=== PATIENT | female | born 1980 | race Caucasian/White ===

== ENCOUNTER 2017-11-12 09:56 | Emergency (ER) | payer MEDICARE, MEDICAID ==
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
[2017-11-12 13:11] VITALS: BP 129/89
== END 2017-11-12 13:10 | disposition home or self-care (01) ==
LOC: ED 09:56
DX: R53.1 Weakness (principal); G35 Multiple sclerosis; F17.210 Nicotine dependence, cigarettes, uncomplicated; F25.9 Schizoaffective disorder, unspecified; Z99.3 Dependence on wheelchair; Z88.0 Allergy status to penicillin
CPT/HCPCS: 99282

== ENCOUNTER 2018-02-12 16:49 | Inpatient (IN) | payer MEDICARE, MEDICAID ==
[2018-02-12] MEDS ORDERED: Nicotine Inhaler* 10 MG AMP INH PRN (17:25)
[2018-02-12] MEDS ORDERED: Mouth Piece, Nicotine* 1 EACH CARTRIDGE INH ONE (18:00)
[2018-02-12 18:15] LABS: Hematocrit 48 % (35-47); Hemoglobin 15.9 g/dl (12.0-16.0); Mean Corpuscular HGB Conc 34 g/dl (31-36); Mean Corpuscular Hemoglobin 30 pg (27-31); Mean Corpuscular Volume 91 fL (80-97); Mean Platelet Volume 10.1 fL (7.4-10.4); Platelet Count 233 10^3/ul (150-450); Red Blood Count 5.25 10^6/ul (4.00-5.40); Red Cell Distribution Width 14 % (10.5-15); White Blood Count 6.9 10^3/ul (3.5-10.8)
[2018-02-12 18:25] LABS: EGFR Non-African American 94.2 (>60)
[2018-02-12 18:59] LABS: ABS Basophils 0.1 10^3/ul (0-0.2); ABS Eosinophils 0.1 10^3/ul (0-0.6); ABS Lymphocytes 3.7 10^3/ul (1.0-4.8); ABS Monocytes 0.4 10^3/ul (0-0.8); ABS Neutrophils 2.6 10^3/ul (1.5-7.7); ABS Nucleated RBC 0 10^3/ul; Eosinophil % 1.7 % (0-6); Lymphocyte % 53.9 % (25-47); Nucleated Red Blood Cells % 0.2
--- NOTE | 2018-02-12 20:57 | ED ---
Psychiatric Complaint - HPI Summary HPI Summary: Patient is a 37 y/o F brought in by ambulance with SI and plan to cut her wrists. She reports that her Abilify is not working and that she is currently manic. She notes she experiences SI when manic. Patient also reports previous attempts of suicide. Patient states that the has not slept for the past three days, no food intake in the past four days. PMHx of MS, patient is non- ambulatory. This has been the case for three years. No Hx of cardiac problems. On triage,associated severity is rated 8/10, nothing is noted to aggravate/ alleviate Sx. Home medications and allergies are reviewed. - History Of Current Complaint Chief Complaint: EDMentalHealth Time Seen by Provider: 02/12/18 17:24 Hx Obtained From: Patient Hx Last Menstrual Period: ON DEPOPROVERA Onset/Duration: Still Present Timing: Constant Severity Currently: Severe - 8/10 on triage Character: Manic Aggravating Factor(s): Nothing Alleviating Factor(s): Nothing Has Suicidal: Reports: Thoughts, With A Plan, Has Prior Attempt(s) - Allergies/Home Medications Allergies/Adverse Reactions: Allergies Allergy/AdvReac Type Severity Reaction Status Date / Time Penicillins Allergy Hives Verified 11/12/17 11:44 PMH/Surg Hx/FS Hx/Imm Hx Endocrine/Hematology History: Denies: Hx Anticoagulant Therapy, Hx Blood Disorders, Hx Blood Transfusions, Hx Bone Marrow Disease, Hx Diabetes, Hx Systemic Lupus Erythematosus, Hx Sickle Cell Disease, Hx Thyroid Disease, Hx Anemia, Hx Unexplained Bleeding, Other Endocrine/Hematological Disorders Cardiovascular History: Denies: Hx Aneurysm, Hx Angina, Hx Angioplasty, Hx Auto Implanted Cardiovert Defib, Hx Cardiac Arrest, Hx Cardiomegaly, Hx Congenital Heart Disease, Hx Congestive Heart Failure, Hx Coronary Artery Disease, Hx Deep Vein Thrombosis, Hx Hypercholesterolemia, Hx Hypotension, Hx Hypertension, Hx Pacemaker/ICD, Hx Peripheral Vascular Disease, Hx Rheumatic Fever, Hx Syncope, Hx Valvular Heart Disease, Other Cardiovascular Problems/Disorders History: Denies: Hx Dialysis, Hx Renal Disease Musculoskeletal History: Reports: Other Musculoskeletal History - rt knee miniscus repair right leg pain. Sensory History: Reports: Hx Contacts or Glasses - for reading Denies: Hx Hearing Aid Opthamlomology History: Reports: Hx Contacts or Glasses - for reading Neurological History: Denies: Other Neuro Impairments/Disorders - DENIES Psychiatric History: Reports: Hx Anxiety, Hx Depression, Hx Panic Disorder, Hx Post Traumatic Stress Disorder, Hx Inpatient Treatment, Hx Community Mental Health Tx - [facility], Hx Schizophrenia, Hx Suicide Attempt, Hx Substance Abuse Denies: Hx Attention Deficit Hyperactivity Disorder, Hx Eating Disorder, Hx Bipolar Disorder, Hx of Violent Episodes Against Others, Other Psychiatric Issues/Disorders - Surgical History Surgery Procedure, Year, and Place: 2004 rt knee miniscus repair Hx Anesthesia Reactions: No Infectious Disease History: No Infectious Disease History: Reports: Hx Shingles - states had disease Denies: Hx Clostridium Difficile, Hx Human Immunodeficiency Virus (HIV) - test negative, Hx Tuberculosis, Traveled Outside the US in Last 30 Days Comment Only: Hx Hepatitis - pt unsure - Family History Known Family History: Negative: Cardiac Disease, Diabetes - Social History Alcohol Use: None Substance Use Type: Reports: Marijuana Substance Use Comment - Amount & Last Used: cocaine, heroin, marijuana hx. Smoking Status (MU): Heavy Every Day Tobacco Smoker Type: Cigarettes Amount Used/How Often: 1-2 ppd Length of Time of Smoking/Using Tobacco: 10+ YRS Have You Smoked in the Last Year: Yes Review of Systems Negative: Fever - on vitals, temp is 98.4 F Positive: Other - manic, SI with plan, prior attempts All Other Systems Reviewed And Are Negative: Yes Physical Exam - Summary Physical Exam Summary: Appearance: Well-appearing, Well-nourished, lying in bed comfortably Skin: Warm, dry, no obvious rash Eyes: sclera anicteric, no conjunctival pallor ENT: mucous membranes moist, pharynx appears normal Neck: Supple, nontender Respiratory: Clear to auscultation, no signs of respiratory distress Cardiovascular: Normal S1, S2. No murmurs. Normal distal pulses in tibial and radial bilaterally. Abdomen: Soft, nontender, normal active bowel sounds present Musculoskeletal: No movement in BLE, otherwise normal Neurological: A&Ox3, awake and alert, mentation is normal, speech is fluent and appropriate Psychiatric: affect is normal, does not appear anxious or depressed Triage Information Reviewed: Yes Vital Signs On Initial Exam: Initial Vitals Temp Pulse Resp BP Pulse Ox 98.4 F 75 16 126/90 99 02/12/18 17:01 02/12/18 17:01 02/12/18 17:01 02/12/18 17:01 02/12/18 17:01 Vital Signs Reviewed: Yes Diagnostics - Vital Signs Vital Signs Temp Pulse Resp BP Pulse Ox 02/12/18 19:44 97.9 F 79 16 166/76 97 02/12/18 17:01 98.4 F 75 16 126/90 99 - Laboratory Lab Results: Lab Results 02/12/18 02/12/18 Range/Units 17:53 17:53 WBC 6.9 (3.5-10.8) 10^3/ul RBC 5.25 (4.00-5.40) 10^6/ul Hgb 15.9 (12.0-16.0) g/dl Hct 48 H (35-47) % MCV 91 (80-97) fL MCH 30 (27-31) pg MCHC 34 (31-36) g/dl RDW 14 (10.5-15) % Plt Count 233 (150-450) 10^3/ul MPV 10.1 (7.4-10.4) fL Neut % (Auto) 37.4 L (38-83) % Lymph % (Auto) 53.9 H (25-47) % Armstrong % (Auto) 5.6 (0-7) % Eos % (Auto) 1.7 (0-6) % Baso % (Auto) 1.4 (0-2) % Absolute Neuts (auto) 2.6 (1.5-7.7) 10^3/ul Absolute Lymphs (auto) 3.7 (1.0-4.8) 10^3/ul Absolute Monos (auto) 0.4 (0-0.8) 10^3/ul Absolute Eos (auto) 0.1 (0-0.6) 10^3/ul Absolute Basos (auto) 0.1 (0-0.2) 10^3/ul Absolute Nucleated RBC 0 10^3/ul Nucleated RBC % 0.2 Sodium 137 (135-145) mmol/L Potassium 4.0 (3.5-5.0) mmol/L Chloride 105 (101-111) mmol/L Carbon Dioxide 26 (22-32) mmol/L Anion Gap 6 (2-11) mmol/L BUN 7 (6-24) mg/dL Creatinine 0.70 (0.51-0.95) mg/dL Est GFR ( Amer) 113.9 (>60) Est GFR (Non-Af Amer) 94.2 (>60) BUN/Creatinine Ratio 10.0 (8-20) Glucose 88 (70-100) mg/dL Calcium 9.6 (8.6-10.3) mg/dL Total Bilirubin 0.20 (0.2-1.0) mg/dL AST 14 (13-39) U/L ALT 10 (7-52) U/L Alkaline Phosphatase 63 (34-104) U/L Total Protein 7.5 (6.4-8.9) g/dL Albumin 4.2 (3.2-5.2) g/dL Globulin 3.3 (2-4) g/dL Albumin/Globulin Ratio 1.3 (1-3) TSH 1.59 (0.34-5.60) mcIU/mL Salicylates < 2.50 (<30) mg/dL Acetaminophen 2 mcg/mL Serum Alcohol < 10 (<10) mg/dL Result Diagrams: 02/12/18 17:53 02/12/18 17:53 Lab Statement: Any lab studies that have been ordered have been reviewed, and results considered in the medical decision making process. Re-Evaluation - Re-Evaluation First Eval Re-Evaluation Time: 19:15 Comment: Patient was medically cleared for MHE. Course/Dx - Course Course Of Treatment: Patient is a 37 y/o F brought in by ambulance with SI and plan to cut her wrists. She reports that her Abilify is not working and that she is currently manic. She notes she experiences SI when manic. Patient also reports previous attempts of suicide. Patient states that the has not slept for the past three days, no food intake in the past four days. PMHx of MS, patient is non-ambulatory. This has been the case for three years. No Hx of cardiac problems. On physical exam, patient is noted to be unable to move BLE. Tox screen was negative, labs unremarkable. Patient was medically cleared for MHE. During ED course, patient received nicotine inhaler and nicotine mouth piece. 2046 - Dr. Ramirez reviewed the patient's case. Patient will be voluntarily admitted to [facility], Dx of bipolar disorder. Dr. Darby is agreeable with this plan. - Differential Dx/Clinical Impression Provider Diagnosis: Bipolar disorder - Physician Notifications Discussed Care Of Patient With: Vince Ramirez Time Discussed With Above Provider: 20:47 Instructed by Provider To: Other - 2046 - Dr. Ramirez reviewed the patient's case. Patient will be voluntarily admitted to [facility], Dx of bipolar disorder. Dr. Darby is agreeable with this plan. Discharge - Sign-Out/Discharge Documenting (check all that apply): Patient Departure - admit - Discharge Plan Condition: Good Disposition: PSYCHIATRIC FACILITY-[facility] - Billing Disposition and Condition Condition: GOOD Disposition: Psychiatric Facility [facility] - Attestation Statements Document Initiated by Scribe: Yes Documenting Scribe: Lamonte Tovar Provider For Whom Scribe is Documenting (Include Credential): Scott Darby MD Scribe Attestation: Lamonte Zarate , scribed for Scott Darby MD on 02/13/18 at 1712. Scribe Documentation Reviewed: Yes Provider Attestation: The documentation as recorded by the Lamonte escalante accurately reflects the service I personally performed and the decisions made by me, Scott Darby MD
[2018-02-12] MEDS ORDERED: chlorproMAZINE TAB* 50 MG PO PRN (23:05)
[2018-02-12] MEDS ORDERED: Nicotine GUM* 2 MG PO PRN (23:15)
[2018-02-12] MEDS ORDERED: Acetaminophen TAB* 325 MG PO PRN (23:15)
[2018-02-12] MEDS ORDERED: Al Hydrox/Mg Hydrox/Simet LIQ* 30 ML UDC PO PRN (23:15)
[2018-02-12] MEDS ORDERED: Mouth Piece, Nicotine* 1 EACH CARTRIDGE INH SCH (23:16)
[2018-02-13] MEDS: Vitamin THERAPEUTIC TAB PO SCH (08:58)
[2018-02-13] MEDS ORDERED: ARIPiprazole TAB* 5 MG PO SCH (09:00)
[2018-02-13] MEDS ORDERED: clonazePAM TAB(*) 0.5 MG PO ONE (10:03)
--- NOTE | 2018-02-13 11:49 | PN ---
[facility]HU: Group Therapy Note - Service Type Service Type: 52301 Group Psychotherapy - Cognitive Behavioral Group Therapy ( CBT):Patient was attentive and participatory in CBT programming this morning, and remained in good behavioral control. Patient expressed positive insights regarding relevant treatment interventions and goals.
[2018-02-13] MEDS: Nicotine Inhaler* 10 MG AMP INH PRN (13:11)
[2018-02-13] MEDS: Nicotine PATCH 21 MG/24 HR* PATCH TRANSDERM SCH (13:12)
[2018-02-13] MEDS: clonazePAM TAB(*) 0.5 MG PO SCH ×2 (13:13→20:09)
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
[2018-02-13] MEDS ORDERED: busPIRone TAB* 15 MG PO SCH (21:00)
[2018-02-13] MEDS ORDERED: Prazosin CAP* 1 MG PO SCH (21:00)
[2018-02-13] MEDS: Nicotine Patch Removal NOTE FOLLOW UP SCH (21:53)
[2018-02-14] MEDS: Nicotine PATCH 21 MG/24 HR* PATCH TRANSDERM SCH ×2 (06:00→09:08)
[2018-02-14] MEDS: Nicotine Inhaler* 10 MG AMP INH PRN (06:00)
[2018-02-14] MEDS ORDERED: clonazePAM TAB(*) 0.5 MG PO SCH (09:00)
[2018-02-14] MEDS: ARIPiprazole TAB* 15 MG PO SCH (09:11)
[2018-02-14] MEDS: Vitamin THERAPEUTIC TAB PO SCH (09:11)
[2018-02-14] MEDS: clonazePAM TAB(*) 0.5 MG PO SCH ×2 (14:02→20:23)
[2018-02-14] MEDS: Ibuprofen TAB* 600 MG PO PRN (16:10)
[2018-02-14] MEDS ORDERED: chlorproMAZINE TAB* 50 MG PO PRN (18:06)
--- NOTE | 2018-02-14 19:18 | PN ---
Subjective - Subjective Date of Service: 02/14/18 Service Type: 49718 Hosp care 25 min moderate complexity Subjective: Cecile's Klonopin, which was changed from Xanax, was decreased today to 0.5 mg BID. Cecile was anxious about this before the second dose was due. We will increase it back to TID and discuss with Cecile the impact of this choice. Generally she is in a good mood and is feeling more comfortable in a wheelchair with leg and food rests. She's quite happy about wearing striped socks and has a smile on her face when this is discussed. She states she is not hearing voices at this time. Objective - Appearance Appearance: Well Developed/Nourished Dysmorphic Features: No Hygiene: Normal Grooming: Well Kept - Behavior Psychomotor Activities: Normal Exhibits Abnormal Movement: No - Attitude and Relatedness Attitude and Relatedness: Well Related Eye Contact: Good - Speech Quality: Unpressured Latencies: Normal Quantity: Appropriate - Mood Patient's Decription of Mood: "Good" - Affect Observed Affect: Good Affect Consistent with: Euthymia - Thought Process Patient's Thought Process: Coherent Thought Content: Yes Passive Wish, No Suicidal Planning, No Homicidal Ideation, No Paranoid Ideation - Sensorium Experiencing Hallucinations: No, Sensorium is Clear Type of Hallucinations: Visual: No, Auditory: No, Command: No - Level of Consciousness Level of Consciousness: Alert Orientation: Yes Intact, Yes Orientated to Time, Yes Orientated to Place, Yes Orientated to Person - Impulse Control Impulse Control: Tenuous - Insight and Judgement Insight and Judgement: Fair - Group Participation Particating in Group Activities: Yes - Medication Management Medication Management Adherence: Yes Assessment - Assessment Merits Inpatient Hospitalization: For Immediate Safety Inpatient DSM-V Dx: F31.5 Clinical Impression: Cecile requires support in the community as she is isolated and sometimes frightened when she is alone. This seems to increase her anxiety and cause an exacerbation of auditory hallucinations.. We have increased the Abilify to 15 mg. To address sleep and nightmares, we increase prazosin to 4 mg at bedtime. Cecile is active in groups and we will encourage this to continue. Plan - Plan Treatment Plan: Name: CECILE PERRY Birthdate: 1980 [id number] Medications: Current Medications Acetaminophen (Tylenol Tab*) 650 mg PO Q4H PRN PRN Reason: PAIN or TEMP > 101 F Last Admin: 02/14/18 06:00 Dose: 650 mg Al Hydrox/Mg Hydrox/Simethicone (Maalox Plus*) 30 ml PO Q4H PRN PRN Reason: INDIGESTION Aripiprazole (Abilify Tab*) 15 mg PO DAILY [facility] Last Admin: 02/14/18 09:11 Dose: 15 mg Chlorpromazine HCl (Thorazine Tab*) 50 mg PO Q4H PRN PRN Reason: AGITATION Last Admin: 02/14/18 18:23 Dose: 50 mg Clonazepam (Klonopin Tab(*)) 0.5 mg PO TID [facility] Stop: 02/16/18 23:00 Last Admin: 02/14/18 14:02 Dose: 0.5 mg Device (Nicotine Mouth Piece*) 1 each INH .[place] [facility] Last Admin: 02/13/18 13:11 Dose: 1 each Ibuprofen (Motrin Tab*) 600 mg PO Q6H PRN PRN Reason: PAIN Last Admin: 02/14/18 16:10 Dose: 600 mg Multivitamins (Theragran Tab*) 1 tab PO DAILY [facility] Last Admin: 02/14/18 09:11 Dose: 1 tab Nicotine (Nicotine Inhaler*) 10 mg INH Q2H PRN PRN Reason: CRAVING Last Admin: 02/14/18 06:00 Dose: 10 mg Nicotine (Nicotine Patch 21 Mg/24 Hr*) 1 patch TRANSDERM DAILY [facility] Last Admin: 02/14/18 09:08 Dose: Not Given Nicotine Polacrilex (Nicotine Gum*) 2 mg PO Q2H PRN PRN Reason: CRAVING Pharmacy Profile Note (Nicotine Patch Removal Note*) 1 note FOLLOW UP 2100 [facility] Last Admin: 02/13/18 21:53 Dose: 1 note Prazosin HCl (Minipress Cap*) 4 mg PO BEDTIME [facility]
[2018-02-14] MEDS ORDERED: Prazosin CAP* 1 MG PO SCH (21:00)
[2018-02-14] MEDS: Nicotine Patch Removal NOTE FOLLOW UP SCH (22:15)
[2018-02-15] MEDS: ARIPiprazole TAB* 15 MG PO SCH (07:00)
[2018-02-15] MEDS: clonazePAM TAB(*) 0.5 MG PO SCH ×2 (07:00→13:15)
[2018-02-15] MEDS: Nicotine PATCH 21 MG/24 HR* PATCH TRANSDERM SCH (07:00)
[2018-02-15] MEDS: Vitamin THERAPEUTIC TAB PO SCH (07:00)
[2018-02-15 08:06] VITALS: BP 92/66
[2018-02-15] MEDS: Ibuprofen TAB* 600 MG PO PRN (09:16)
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
== END 2018-02-15 15:30 | disposition home or self-care (01) | DRG 885 ==
LOC: ED 16:49 → BSU 22:32
PROVIDERS: ADMIT Psychiatry & Neurology Psychiatry; ATTEND Psychiatry & Neurology Psychiatry
PROC: GZHZZZZ Group Psychotherapy (ICD-10-PCS; principal; 2018-02-12)
DX: F31.5 Bipolar disorder, current episode depressed, severe, with psychotic features (principal); R45.851 Suicidal ideations; G35 Multiple sclerosis; Z62.810 Personal history of physical and sexual abuse in childhood; F41.9 Anxiety disorder, unspecified; F43.10 Post-traumatic stress disorder, unspecified; F17.210 Nicotine dependence, cigarettes, uncomplicated; Z88.0 Allergy status to penicillin; Z86.19 Personal history of other infectious and parasitic diseases; Z99.3 Dependence on wheelchair; Z81.1 Family history of alcohol abuse and dependence
CPT/HCPCS: 36415; 80053; 80320; 80329; 84443; 85025; 90853; 99222; 99232; 99238; 99283; A9270-GY; G0480

== ENCOUNTER 2019-03-20 07:44 | Emergency (ER) | payer MEDICARE ==
--- NOTE | 2019-03-20 08:27 | ED ---
Neurological HPI - HPI Summary HPI Summary: This pt is a 38 y/o female presenting to [facility] c/o bilateral lower extremity and upper extremity tingling for the past 3 days. Pt reports she has hx of MS. She states she has never had tingling in her LE or UE in the past with MS. Pt notes for the past 3 days she has had tingling sensation in UE and LE, described as foot falling asleep. Pt reports when tingling stops she feels a burning pain in bilateral feet, "like someone put gas on her and set her on fire." Denies fever, chest pain, SOB. Pt does not have a neurologist in the area. She states she moved from [place] 1.5 months ago where she had a neurologist but can't remember his name. Pt notes she tried Copaxone infusions for a while but had adverse effects to it. Pt notes she did research online where she found out about other side effects of MS infusion treatments that can lead to brain CA and decided to stop receiving infusions. She does not have a PCP in the area either. PMHx includes schizoaffective disorder. Pt is a former IVDU, last time she used was 5-6 years ago. Pt currently smokes cigarettes. - History of Current Complaint Chief Complaint: EDExtremityLower Stated Complaint: PAIN PER EMS Time Seen by Provider: 03/20/19 08:17 Hx Obtained From: Patient Hx Last Menstrual Period: ON DEPOPROVERA Onset/Duration: Started days ago - 3, Still Present Timing: Intermittent Episodes Lasting: - 3 days Current Severity: Mild Neurological Deficit Location: RUE, LUE, RLE, LLE Pain Intensity: 8 Pain Scale Used: 0-10 Numeric Character: Numbness/Tingling - Tingling, Other: - burning pain Aggravating: Nothing Alleviating: Nothing Associated Signs and Symptoms: Positive: Pain - burning pain. Negative: Fever, Chest Pain, Shortness of Breath - Additional Pertinent History Primary Care Physician: CHRISTINE - Allergy/Home Medications Allergies/Adverse Reactions: Allergies Allergy/AdvReac Type Severity Reaction Status Date / Time Penicillins Allergy Hives Verified 03/20/19 07:51 PMH/Surg Hx/FS Hx/Imm Hx Endocrine/Hematology History: Denies: Hx Anticoagulant Therapy, Hx Blood Disorders, Hx Blood Transfusions, Hx Bone Marrow Disease, Hx Diabetes, Hx Systemic Lupus Erythematosus, Hx Sickle Cell Disease, Hx Thyroid Disease, Hx Anemia, Hx Unexplained Bleeding, Other Endocrine/Hematological Disorders Cardiovascular History: Denies: Hx Aneurysm, Hx Angina, Hx Angioplasty, Hx Auto Implanted Cardiovert Defib, Hx Cardiac Arrest, Hx Cardiomegaly, Hx Congenital Heart Disease, Hx Congestive Heart Failure, Hx Coronary Artery Disease, Hx Deep Vein Thrombosis, Hx Hypercholesterolemia, Hx Hypotension, Hx Hypertension, Hx Pacemaker/ICD, Hx Peripheral Vascular Disease, Hx Rheumatic Fever, Hx Syncope, Hx Valvular Heart Disease, Other Cardiovascular Problems/Disorders History: Denies: Hx Dialysis, Hx Renal Disease Musculoskeletal History: Reports: Other Musculoskeletal History - rt knee miniscus repair right leg pain. Sensory History: Reports: Hx Contacts or Glasses - for reading Denies: Hx Hearing Aid Opthamlomology History: Reports: Hx Contacts or Glasses - for reading Neurological History: Reports: Hx Migraine, Other Neuro Impairments/Disorders - MS Psychiatric History: Reports: Hx Anxiety, Hx Depression, Hx Panic Disorder, Hx Post Traumatic Stress Disorder, Hx Inpatient Treatment, Hx Community Mental Health Tx - [facility], Hx Schizophrenia, Hx Suicide Attempt, Hx Substance Abuse, Other Psychiatric Issues/Disorders - Schizoaffective disorder Denies: Hx Attention Deficit Hyperactivity Disorder, Hx Eating Disorder, Hx Bipolar Disorder, Hx of Violent Episodes Against Others - Surgical History Surgical History: Yes Surgery Procedure, Year, and Place: 2004 rt knee miniscus repair Hx Anesthesia Reactions: No Infectious Disease History: No Infectious Disease History: Reports: Hx Shingles - states had disease Denies: Hx Clostridium Difficile, Hx Human Immunodeficiency Virus (HIV) - test negative, Hx Tuberculosis, Traveled Outside the [place] in Last 30 Days Comment Only: Hx Hepatitis - pt unsure - Family History Known Family History: Negative: Cardiac Disease, Diabetes - Social History Alcohol Use: None Hx Substance Use: Yes Substance Use Type: Reports: Marijuana Substance Use Comment - Amount & Last Used: cocaine, heroin, marijuana hx. States last time she used was 5-6 years ago. Smoking Status (MU): Heavy Every Day Tobacco Smoker Type: Cigarettes Amount Used/How Often: 1-2 ppd Length of Time of Smoking/Using Tobacco: 10+ YRS Have You Smoked in the Last Year: Yes Review of Systems Negative: Fever, Chills Negative: Chest Pain Negative: Shortness Of Breath Musculoskeletal: Other - POSITIVE: pain in bilateral UE and LE Positive: Paresthesia - in UE and LE All Other Systems Reviewed And Are Negative: Yes Physical Exam - Summary Physical Exam Summary: Constitutional: Well-developed, Well-nourished, Alert. (-) Distressed Skin: Warm, Dry. No rashes on legs. HENT: Normocephalic; Atraumatic Eyes: Conjunctiva normal Neck: Musculoskeletal ROM normal neck. (-) JVD, (-) Stridor, (-) Tracheal deviation Cardio: Rhythm regular, rate normal, Heart sounds normal; Intact distal pulses; The pedal pulses are 2+ and symmetric. Radial pulses are 2+ and symmetric. Pulmonary/Chest wall: Effort normal. (-) Respiratory distress, (-) Wheezes, (-) Rales Abd: Soft, (-) tenderness, (-) Distension, (-) Guarding, (-) Rebound Musculoskeletal: Good pulses in bilateral legs. Warm and well perfused. No calf tenderness. No calf swelling. Neuro: Alert, Oriented x3 Psych: Mood and affect Normal Triage Information Reviewed: Yes Vital Signs On Initial Exam: Initial Vitals Temp Pulse Resp BP Pulse Ox 98.6 F 72 16 124/84 98 03/20/19 07:48 03/20/19 07:48 03/20/19 07:48 03/20/19 07:48 03/20/19 07:48 Vital Signs Reviewed: Yes Procedures - Sedation Patient Received Moderate/Deep Sedation with Procedure: No Diagnostics - Vital Signs Vital Signs Temp Pulse Resp BP Pulse Ox 03/20/19 07:48 98.6 F 72 16 124/84 98 - Laboratory Lab Statement: Any lab studies that have been ordered have been reviewed, and results considered in the medical decision making process. Re-Evaluation - Re-Evaluation First Eval Re-Evaluation Time: 08:47 Comment: Dr. Hernadez, neurologist, at bedside. Course/Dx - Course Assessment/Plan: Pt is a 38 y/o female, with hx of IVDU and MS, presenting to [facility] c/o bilateral lower extremity and upper extremity tingling and burning pain for the past 3 days. Discussed the case with Dr. Hernadez, neurologist, who came to the ED and assessed the patient. Dr. 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 Patient is refusing IV and blood work in the ED. Dr. Hernadez recommends 20 mg of Cymbalta and writing a prescription for [address] Hernadez also recommends follow up in his office in a couple of weeks. Pt will be discharged home with a prescription of Cymbalta 20 mg for 1 month. Dx: MS flare. - Diagnoses Provider Diagnoses: Multiple sclerosis - Physician Notifications Discussed Care Of Patient With: Dimitri Hernadez Time Discussed With Above Provider: 08:32 Instructed by Provider To: Other - Discussed the case with Dr. Hernadez, neurologist, who will come see pt in the ED and agrees with Benadryl, Reglan, Toradol, and basic labs. Discharge ED - Sign-Out/Discharge Documenting (check all that apply): Patient Departure - Discharge home - Discharge Plan Condition: Stable Disposition: HOME Prescriptions: DULoxetine DR CAP* [Cymbalta CAP*] 20 mg PO BID 30 Days #60 cap.dr Patient Education Materials: Multiple Sclerosis ([place]) Referrals: Dimitri Hernadez MD [Medical Doctor] - [facility] PHYSICIAN REFERRAL [Outside] Additional Instructions: Establish a primary care provider through [facility] Physician Referral. Follow up with Dr. Hernadez, neurologist. in a couple of weeks. RETURN TO THE ED FOR ANY WORSENING OR NEW SYMPTOMS. - Billing Disposition and Condition Condition: STABLE Disposition: Home - Attestation Statements Document Initiated by James: Yes Documenting Scribe: Megan Johnson Provider For Whom James is Documenting (Include Credential): Blanco Xie MD Scribe Attestation: Megan Zarate, scribed for Blanco Xie MD on 03/20/19 at 1838. Scribe Documentation Reviewed: Yes Provider Attestation: The documentation as recorded by the Megan escalante accurately reflects the service I personally performed and the decisions made by me, Blanco Xie MD Status of Scribkurtis Document: Viewed
[2019-03-20] MEDS: DULoxetine DR CAP* 20 MG CAP.DR PO ONE (09:28)
[2019-03-20] MEDS: Ketorolac INJ* 30 MG/ML 1 ML VIAL IV PUSH ONE (09:31)
[2019-03-20] MEDS: Metoclopramide IV* 5 MG/ML 2 ML VIAL IV SLOW PU ONE (09:31)
[2019-03-20] MEDS: diPHENhydraMINE IV* 50 MG/ML 1 ml VIAL (BENADRYL) IV ONE (09:31)
[2019-03-20] MEDS: Lactated Ringers 1000 ML Bag* 1,000 ML IV ONE (09:31)
[2019-03-20 09:36] VITALS: BP 125/73
--- NOTE | 2019-03-20 11:38 | CONS ---
NEUROLOGY CONSULTATION: DATE OF CONSULT: 03/20/19 LOCATION: She is in the emergency room. REFERRING PROVIDER: Dr. Blanco Xie. CHIEF COMPLAINT: Burning pain. HISTORY OF PRESENT ILLNESS: Cecile Duval is a 38-year-old woman with a history of multiple scle rosis, who presents with an increase in chronic burning pain in her legs. She is accompanied by her . She says that in her early 30s she started to develop progressive weakness of her lower ext remities. Ultimately, she was diagnosed as having multiple sclerosis. She does not describe a relaps ing-remitting course. I did review an outpatient office note from Dr. Blanco Uribe in our office an d a followup note in 2018. She presented at that time with burning pain in her legs and inability to walk. She has been wheelchair- bound for at least several years according to Cecile and her . She is followed with the [facility] with the last visit about 6 months ago. She has t ravelled back and forth from the [facility] to the [facility] and came back here a few months ago. S he said she was treated with steroids in the [facility] about 6 months ago when she presented with inc reased burning pain in her legs and it did not help. She was on Copaxone in the past, but she says i t caused palpitations and that is the only preventative medicine she has ever been on. She and her h usband say that she was recommended to start Ocrevus at the [facility] about 6 months ag o, but she is worried about side effects. She, through her descriptions of concerns, expresses a poo r understanding of physiology and potential for drug side effects. Without further elaboration, she has never been on a preventative other than Copaxone years ago. She does not describe relapsing and sounds like she either has primary progressive multiple sclerosis or secondary progressive MS. Looki ng at MRI reports from prior year, she has had extensive spinal cord lesions and Dr. Uribe raised t he suspicion of neuromyelitis optica. Again, she presents today because of increased burning in her l egs. She is refusing blood draws or IV access. She is tearful. PAST MEDICAL HISTORY: Otherwise notable for good health. She says the only medical problem she has had is multiple sclerosis. She does carry a diagnosis of schizoaffective disorder according to hospital records. MEDICATIONS: She is not on any medications at home. ALLERGIES: She does not have any allergies, but she says gabapentin made her feel drunk and Lyrica a lso made her feel cognitively impaired. SOCIAL HISTORY: She is a prior IV drug abuser and has been abuse-free for several years. PHYSICAL EXAM: She is a thin, well-hydrated woman. Temperature 98.6, blood pressure 124/84, heart r ate 72 and regular. Respiratory rate is 16 and oxygen saturation is 98% on room air. Heart tones ar e normal. Neck is supple. Neurological Exam: She has a spastic paraparesis. She has bilateral ankle contractures. Just touch ing her legs produces pain. Touching her arms produces pain also, but not as sensitive as in the leg s. She appears to have normal muscle tone in the arms. She has reasonably good strength in the arms . Eye movements are choppy, but full. Speech is clear. DIAGNOSTIC STUDIES/LAB DATA: There are no laboratory studies to review from this ER admission. IMPRESSION AND PLAN: Impression is that of either primary progressive multiple sclerosis, which seem s more likely or secondary progressive multiple sclerosis. That she was recommended to start Ocrevus in [place] supports that she has a progressive form. I do not think she is having a relapse. It sounds more like she is having an aggravation of prior sy mptoms. She does not want intravenous medications. She did not tolerate Lyrica or gabapentin. I as ked if she has ever tried venlafaxine or duloxetine and she has not recognized either of those medica tions. Recommend that she receive 20 mg of duloxetine and then I follow her up in my office. I will get records from [place] if she does follow up, but clearly from her history she has a high risk o f not following through on medical appointments. If, however, she does follow up, I will explore the possibility of preventative medications for progressive forms of multiple sclerosis as well as tryin g to improve symptoms with medications. She says that she has tried baclofen in the past without michele efit, but she might be a candidate for a baclofen pump if in fact that is the case. First, we will h seamus to establish that she is going to be compliant with followup. [id number]/[facility] #: [id number]
== END 2019-03-20 09:25 | disposition home or self-care (01) ==
LOC: ED 07:44
DX: G35 Multiple sclerosis (principal); F25.9 Schizoaffective disorder, unspecified; F41.9 Anxiety disorder, unspecified; F32.9 Major depressive disorder, single episode, unspecified; F43.10 Post-traumatic stress disorder, unspecified; F17.210 Nicotine dependence, cigarettes, uncomplicated; Z88.0 Allergy status to penicillin
CPT/HCPCS: 99283; A9270-GY

== ENCOUNTER 2019-03-28 13:01 | Emergency (ER) | payer MEDICARE ==
[2019-03-28 13:08] VITALS: BP 142/91
--- NOTE | 2019-03-28 15:17 | ED ---
Psychiatric Complaint - HPI Summary HPI Summary: This patient is a 38-year-old female with a history of IV drug use, drug overdose, alcohol use and abuse, SI and depression presenting to the ED with request for medication refills. Pt states she just moved back from [facility] where she was prescribed prazosin, Seroquel and Klonopin. She has been a patient of [facility] in the past and moved to [place] in October 2018. There, she began to see a Dr. Alston at [facility]. She states this facility and this physician prescribed these medications to her. She states she has been out for 3 days since coming back to the area and is in between physicians and has a follow up appt with [facility] on May 22. She has been here in the past and admitted to [facility]. When asked why she did not call her prescribing physician , she states she is unable to reach them. She is requesting a 2 month supply until she gets in to see the physicians at [facility]. She was seen 10 days ago and given a 30 day supply of Cymbalta. - History Of Current Complaint Chief Complaint: EDMedicationRefill Time Seen by Provider: 03/28/19 14:23 Hx Obtained From: Patient Hx Last Menstrual Period: ON DEPOPROVERA ?: No Onset/Duration: Sudden Onset Timing: Constant Severity Initially: Moderate Severity Currently: Moderate Character: Depressed, Anxious Aggravating Factor(s): Nothing Alleviating Factor(s): Nothing Associated Signs And Symptoms: Positive: Negative Related History: Positive For: Prior Psychiatric Issues, Drug Abuse Counseling - Allergies/Home Medications Allergies/Adverse Reactions: Allergies Allergy/AdvReac Type Severity Reaction Status Date / Time Penicillins Allergy Hives Verified 03/28/19 13:06 Home Medications: Home Medications Prazosin HCl 1 mg PO BEDTIME 03/28/19 [History Confirmed 03/28/19] Quetiapine Fumarate [Seroquel 200 MG] 200 mg PO BID 03/28/19 [History Confirmed 03/28/19] clonazePAM [Clonazepam] 0.5 mg PO TID PRN 03/28/19 [History Confirmed 03/28/19] PMH/Surg Hx/FS Hx/Imm Hx Previously Healthy: Yes Endocrine/Hematology History: Denies: Hx Anticoagulant Therapy, Hx Blood Disorders, Hx Blood Transfusions, Hx Bone Marrow Disease, Hx Diabetes, Hx Systemic Lupus Erythematosus, Hx Sickle Cell Disease, Hx Thyroid Disease, Hx Anemia, Hx Unexplained Bleeding, Other Endocrine/Hematological Disorders Cardiovascular History: Denies: Hx Aneurysm, Hx Angina, Hx Angioplasty, Hx Auto Implanted Cardiovert Defib, Hx Cardiac Arrest, Hx Cardiomegaly, Hx Congenital Heart Disease, Hx Congestive Heart Failure, Hx Coronary Artery Disease, Hx Deep Vein Thrombosis, Hx Hypercholesterolemia, Hx Hypotension, Hx Hypertension, Hx Pacemaker/ICD, Hx Peripheral Vascular Disease, Hx Rheumatic Fever, Hx Syncope, Hx Valvular Heart Disease, Other Cardiovascular Problems/Disorders History: Denies: Hx Dialysis, Hx Renal Disease Musculoskeletal History: Reports: Other Musculoskeletal History - rt knee miniscus repair right leg pain. Sensory History: Reports: Hx Contacts or Glasses - for reading Denies: Hx Hearing Aid Opthamlomology History: Reports: Hx Contacts or Glasses - for reading Neurological History: Reports: Hx Migraine, Other Neuro Impairments/Disorders - MS Psychiatric History: Reports: Hx Anxiety, Hx Depression, Hx Panic Disorder, Hx Post Traumatic Stress Disorder, Hx Inpatient Treatment, Hx Community Mental Health Tx - [facility], Hx Schizophrenia, Hx Suicide Attempt, Hx Substance Abuse, Other Psychiatric Issues/Disorders - Schizoaffective disorder Denies: Hx Attention Deficit Hyperactivity Disorder, Hx Eating Disorder, Hx Bipolar Disorder, Hx of Violent Episodes Against Others - Surgical History Surgery Procedure, Year, and Place: 2004 rt knee miniscus repair Hx Anesthesia Reactions: No - Immunization History Hx Pertussis Vaccination: No Immunizations Up to Date: Yes Infectious Disease History: No Infectious Disease History: Reports: Hx Shingles - states had disease Denies: Hx Clostridium Difficile, Hx Human Immunodeficiency Virus (HIV) - test negative, Hx Tuberculosis, Traveled Outside the [place] in Last 30 Days Comment Only: Hx Hepatitis - pt unsure - Family History Known Family History: Negative: Cardiac Disease, Diabetes - Social History Occupation: Unemployed Lives: Alone Alcohol Use: None Hx Substance Use: Yes Substance Use Type: Reports: None Substance Use Comment - Amount & Last Used: pt denied Smoking Status (MU): Heavy Every Day Tobacco Smoker Type: Cigarettes Amount Used/How Often: 1-2 ppd Length of Time of Smoking/Using Tobacco: 10+ YRS Have You Smoked in the Last Year: Yes Review of Systems Negative: Fever, Chills, Fatigue, Skin Diaphoresis Negative: Palpitations, Chest Pain Negative: Shortness Of Breath, Cough Genitourinary: Negative Positive: no symptoms reported, see HPI Negative: Arthralgia, Myalgia Skin: Negative Neurological: Negative Positive: Anxious, Depressed All Other Systems Reviewed And Are Negative: Yes Physical Exam - Summary Physical Exam Summary: Did not perform complete physical exam as pt left Triage Information Reviewed: Yes Vital Signs On Initial Exam: Initial Vitals Temp Pulse Resp BP Pulse Ox 98.9 F 103 15 142/91 98 03/28/19 13:03 03/28/19 13:03 03/28/19 13:03 03/28/19 13:03 03/28/19 13:03 Vital Signs Reviewed: Yes Appearance: Positive: Well-Appearing Eyes: Positive: EOMI Procedures - Sedation Patient Received Moderate/Deep Sedation with Procedure: No Diagnostics - Vital Signs Vital Signs Temp Pulse Resp BP Pulse Ox 03/28/19 13:03 98.9 F 103 15 142/91 98 - Laboratory Lab Statement: Any lab studies that have been ordered have been reviewed, and results considered in the medical decision making process. Course/Dx - Course Course Of Treatment: This patient is requesting refills on her prazosin, Seroquel and Klonopin. Provider was able to call [facility] in [place], patient's pharmacy who denied the patient ever receiving his medications in the past. Also provider was able to call [facility] in [place] who stated they did not previously if this patient prazosin, Seroquel and Klonopin to which she is requesting. Provider was also able to call [facility] who also stated this patient did not have an appointment scheduled for May 22. Provider came to discuss this with patient. Patient became very angry and upset. For better offered a mental health evaluation to better serve her medication needs, to which she adamantly declined. Patient continues to be angry and argumentative and leaves. No DC papers were given or signed. - Differential Dx/Clinical Impression Differential Diagnosis/HQI/PQRI: Positive: Acute Psychosis, Anxiety, Bipolar Disorder, Drug Overdose/Intentional, Drug Overdose/Unintentional, Other - multidrug use, drug seeking behavior Provider Diagnosis: Mood disorder, Polysubstance abuse, Drug-seeking behavior Discharge ED - Sign-Out/Discharge Documenting (check all that apply): Patient Departure - Discharge Plan Condition: Good Disposition: HOME Referrals: No Primary Care Phys,NOPCP [Primary Care Provider] - - Billing Disposition and Condition Condition: GOOD Disposition: Home - Attestation Statements Provider Attestation: I have seen the patient with the [facility] and agree with the plan and documentation below except as noted: history of similar requesting psychiatric medication refill. Discussed with prior providers, unable to establish consistent pattern of medication refills. Deferred to outpatient psychiatry. Osorio Edge MD
== END 2019-03-28 15:15 | disposition home or self-care (01) ==
LOC: ED 13:01
DX: F39 Unspecified mood [affective] disorder (principal); F19.10 Other psychoactive substance abuse, uncomplicated; Z76.5 Malingerer [conscious simulation]; F41.9 Anxiety disorder, unspecified; F32.9 Major depressive disorder, single episode, unspecified; F43.10 Post-traumatic stress disorder, unspecified; F17.210 Nicotine dependence, cigarettes, uncomplicated; Z79.899 Other long term (current) drug therapy; Z88.0 Allergy status to penicillin
CPT/HCPCS: 99282

== ENCOUNTER 2022-11-26 02:54 | Inpatient (IN) ==
[2022-11-26] MEDS ORDERED: Norepinephrine 16MCG/ML BAGD5W 4,000 MCG/250 ML BAG IV ONE (03:15)
[2022-11-26] MEDS ORDERED: Azithromycin 500 mg/250 ml NS 500 MG/250 ML BAG IVPB ONE (03:40)
[2022-11-26] MEDS ORDERED: cefTRIAXone 1 gm/50 mL D5W 1 GM/50 ML BAG IV ONE (03:40)
[2022-11-26] MEDS ORDERED: Norepinephrine 16MCG/ML BAGD5W 4,000 MCG/250 ML BAG IV SCH (04:00)
[2022-11-26 04:16] LABS: Urine Appearance Cloudy; Urine Bilirubin Negative (Negative); Urine Blood 3+ (Negative); Urine Color Yellow; Urine Glucose Negative (Negative); Urine Ketones Negative (Negative); Urine Nitrite Negative (Negative); Urine Protein 2+(100 mg/dL) (Negative); Urine Specific Gravity 1.029 (1.002-1.030); Urine Urobilinogen Negative (Negative)
[2022-11-26 04:21] LABS: Urine Bacteria Absent (Absent); Urine Red Blood Cell 3+(>10/hpf) (Absent); Urine Squamous Epithelial Cell Present (Absent); Urine White Blood Cell 2+(11-20/hpf) (Absent)
[2022-11-26 04:29] LABS: Hematocrit 40.7 % (35-45); Mean Corpuscular Hemoglobin 30.3 pg (27-33); Mean Corpuscular Hgb Conc 31.9 g/dL (31-36); Mean Corpuscular Volume 94.9 fL (80-97); Platelet Count 230 10^3/uL (150-450); Red Blood Count 4.28 10^6/uL (3.63-4.92); Red Cell Distribution Width 14.9 % (12-17); White Blood Count 31.6 10^3/uL (3.8-11.8)
[2022-11-26 04:32] LABS: Urine Benzodiazepine Screen None Detected (None Detect); Urine Cannabinoids Screen Presumptive Positive (None Detect); Urine Opiates Screen None Detected (None Detect)
[2022-11-26 04:48] LABS: Albumin 3.2 g/dL (3.2-5.2); Albumin/Globulin Ratio 1.1 (1-3); Alkaline Phosphatase 295 U/L (35-149); Blood Urea Nitrogen 22 mg/dL (6-24); Calcium 8.4 mg/dL (8.6-10.3); Chloride 105 mmol/L (101-111); Creatinine, Serum 1.32 mg/dL (0.51-0.95); Globulin 2.9 g/dL (2-4); Glucose 170 mg/dL (70-100); Magnesium 3.2 mg/dL (1.9-2.7); Sodium 135 mmol/L (135-145); Total Protein 6.1 g/dL (6.4-8.9)
[2022-11-26 04:52] LABS: High Sens Troponin Baseline 214 pg/mL (<15)
[2022-11-26 04:54] LABS: Alcohol, S < 13 mg/dL (<13); HCG Pregnancy 0.98 mIU/mL; RBC Morphology Normal (Normal)
[2022-11-26 04:55] LABS: ABS Basophils 0.4 10^3/uL (0.0-0.1); ABS Eosinophils 0.3 10^3/uL (0.0-0.5); ABS Lymphocytes 4.5 10^3/uL (1.0-4.8); ABS Monocytes 0.3 10^3/uL (0.0-0.9); ABS Neutrophils 26.1 10^3/uL (1.5-7.6); ABS Nucleated RBC 0.05 10^3/ul; Eosinophil % 0.9 %; Lymphocyte % 14.2 %; Nucleated Red Blood Cells % 0.2 /100 WBC (0.0-0.4)
[2022-11-26 04:56] LABS: Resp Rate 16
[2022-11-26 04:57] LABS: PCO2 Arterial 59 mmHg (35-45); PO2 Arterial 89 mmHg (80-100)
[2022-11-26 05:00] LABS: Anion Gap 16 mmol/L (2-16); CO2 Carbon Dioxide 14 mmol/L (22-32); Potassium 7.9 mmol/L (3.5-5.0)
[2022-11-26] MEDS ORDERED: Sodium Bicarbonate 8.4% SYR 50 ml SYRINGE IV ONE (05:04)
[2022-11-26 05:10] LABS: TSH Ultra Thyroid Stim Horm 11.01 mcIU/mL (0.34-5.60)
[2022-11-26] MEDS ORDERED: Sodium Bicarb 8.4% Vial 50 ML 150 MEQ in D5W 1000 ml BAG 850 ML IV SCH (05:30)
[2022-11-26 05:40] LABS: ALT 2591 U/L (7-52); AST 2844 U/L (13-39)
[2022-11-26 05:45] LABS: Urine Benzodiazepine Screen None Detected (None Detect); Urine Buprenorphine Screen None Detected (None Detect); Urine Cannabinoids Screen Presumptive Positive (None Detect); Urine Fentanyl Screen Presumptive Positive (None Detect); Urine Hydrocodone Screen None Detected (None Detect); Urine Opiates Screen None Detected (None Detect)
[2022-11-26 05:50] LABS: High Sensitivity Troponin 1 Hr 328 pg/mL (<15)
[2022-11-26] MEDS ORDERED: Calcium Gluconate 2 GM in NS 0.9% 100 ml BAG 100 ML IVPB ONE (05:54)
[2022-11-26] MEDS ORDERED: Chlorhexidine MOUTHWASH 0.12% 15 ML UDC TOPICAL SCH (06:00)
[2022-11-26] MEDS: CALCIUM GLUCONATE 1GM/50ML NS BAG IV SCH ×2 (06:29→07:29)
[2022-11-26 07:56] VITALS: BP 64/36
[2022-11-26] MEDS ORDERED: Pantoprazole VIAL 40 MG VIAL IV SCH (09:00)
[2022-11-27] MEDS ORDERED: cefTRIAXone 1 gm/50 mL D5W 1 GM/50 ML BAG IV SCH (04:00)
[2022-11-27] MEDS ORDERED: Azithromycin 500 mg/250 ml NS 500 MG/250 ML BAG IVPB SCH (04:00)
== END 2022-11-26 08:45 | disposition expired | DRG 917 ==
LOC: ED 02:54 → SUATTDRO 04:21 → EDHOLD 04:21 → MERGE 04:21 → EDHOLD 08:44
PROVIDERS: ADMIT Student in an Organized Health Care Education/Training Program; ATTEND Internal Medicine Critical Care Medicine